=== PATIENT | female | born 1965 | race Caucasian/White ===

== ENCOUNTER 2023-01-26 18:13 | Emergency (ER) | payer OTHER, SELFPAY ==
--- NOTE | ~2023-01-26 | XR_ITS ---
EXAMINATION: XR chest 2V Exam Date/Time: 01/26/2023 18:55 CDT HISTORY: CHEST PAIN INTERMITTENT SINCE SUMMER Comparison: None. RESULT: Lines, tubes, and devices: None. Lungs and pleura: Clear. Cardiomediastinal silhouette: Unremarkable. Other: No acute osseous or upper abdominal finding. IMPRESSION: No acute cardiopulmonary process. Reviewed, dictated and finalized at location K.
[2023-01-26 18:21] VITALS: BP 104/68; PULSE 80; RESP 16; TEMP 36.6; O2SAT 100
--- NOTE | 2023-01-26 18:27 | ECG_ITS ---
Measurements Intervals [place] Rate: 65 P: 49 AL: 156 QRS: -2 QRSD: 91 T: 20 QT: 372 QTc: 389 Interpretive Statements SINUS RHYTHM POSSIBLE LEFT ATRIAL ENLARGEMENT INCOMPLETE RIGHT BUNDLE BRANCH BLOCK BASELINE ARTIFACT- I, II, AVR, AVL, AVF BORDERLINE ECG NO PREVIOUS ECG AVAILABLE FOR COMPARISON Electronically Signed On 01-26-2023 20:12:09 CDT by Ramirez Nolasco D.O.
--- NOTE | 2023-01-26 18:42 | ED.CHESTPAIN ---
HPI - Chest Pain General Chief Complaint: Chest Pain Stated Complaint: CHEST PAIN Time Seen by Provider: 01/26/23 18:45 Mode of arrival: ambulatory Limitations: no limitations History of Present Illness HPI narrative: 57-year-old female presents with concern for chest pain intermittently since the beginning of the summer. 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 Reports and has resumed since going back to school. She reports that is not a sharp pain, she is unable to describe the pain any further. She denies any exacerbating or relieving factors. She denies shortness of breath. She reports mild cough over the last several days. She denies tenderness, bruising, rash, redness. She reports today she had mild left-sided back pain. She denies pain worsening with activity. She denies nausea or diaphoresis MD complaint: chest pain Related Data Home Medications Medication Instructions Recorded Confirmed sertraline 25 mg tablet 25 mg PO DAILY 01/26/23 01/26/23 valacyclovir 1 gram tablet 1,000 mg PO DAILY 01/26/23 01/26/23 Allergies Allergy/AdvReac Type Severity Reaction Status Date / Time codeine AdvReac Nausea and Verified 01/26/23 19:03 Vomiting Review of Systems Review of Systems: CONSTITUTIONAL: Denies malaise, chills, sweats, or fever. ENT: Denies rhinorrhea, congestion, sinus pain, otalgia or sore throat. CARDIOVASCULAR: Reports intermittent chest pain. Denies palpitations, or edema. RESPIRATORY: Reports cough. Denies dyspnea. GASTROINTESTINAL: Denies abdominal pain, nausea SKIN: Denies rash or itching, redness, warmth, bruising. MUSCULOSKELETAL: Reports my back pain today NEUROLOGIC: Denies numbness, weakness, or headache. All systems reviewed & are unremarkable except as noted in HPI and below PMFSH Comments At time of signature, agree with nursing past medical, surgical, social and family history. There is no relevant family history pertinent to the presenting complaint Exam Narrative: GENERAL: Well-appearing, well-nourished, and in no acute distress. HEAD: Normocephalic EYES: PERRLA, sclera clear ENT: Nares clear, turbinates pink, no rhinorrhea or epistaxis. Mucous membranes moist. Oropharynx without erythema or lesions. Tonsils not enlarged and without exudate. NECK: Supple. No jugular venous distension. CHEST: No respiratory distress. Clear to auscultation. No bony deformities, no asymmetry. Speaks in full sentences. No chest wall tenderness HEART: Regular rate and rhythm. No murmur heard. Normal peripheral pulses. EXTREMITIES: Grossly normal range of motion. No edema. SKIN: Warm, dry, no visible rash, bruising, redness. NEURO: Alert and oriented x3. PSYCH: Normal mood and affect Course Course Emergency Course: Discussed EKG findings with patient, discussed exam findings. I advised patient that with the diagnostic tools I have available I cannot rule out for diagnosis any cardiac issue. I advised patient that to the ER would be the only place tonight that will be able to do that. Patient reports she you does not monitor the ER, she reports she has been trying to get into her primary care doctor but has not been able to get an appointment. Patient is not willing to be transferred to ER offered her a follow-up with Cardiology. Patient is aware of diagnosis, understands and agrees to treatment plan. Anticipatory guidance given. Patient agrees to follow-up as directed and is aware of reasons to seek care at the emergency department. Portions of this record may have been created with voice recognition software Level of Care: Express Care Visit Vital Signs Vital signs: Vital Signs Temperature 97.8 F 01/26/23 18:21 Pulse Rate 80 01/26/23 18:21 Respiratory Rate 16 01/26/23 18:21 Blood Pressure 104/68 01/26/23 18:21 Pulse Oximetry 100 01/26/23 18:21 Temperature 97.8 F 01/26/23 18:21 Pulse Rate 80 01/26/23 18
== END 2023-01-26 19:35 | disposition home or self-care (01) ==
PROVIDERS: Emergency Provider Nurse Practitioner; PCP Family Medicine
DX: R07.9 Chest pain, unspecified (principal)
CPT/HCPCS: 71046; 93005; 99213; G0463